=== PATIENT | female | born 1995 | race Caucasian/White ===

== ENCOUNTER 2020-02-03 18:08 | Emergency (ER) | payer BC ==
[~2020-02-03] VITALS: Ht 172.7 cm; Wt 81.6 kg
[2020-02-03 18:18] VITALS: Ht 172.7 cm; Wt 81.6 kg
[2020-02-03 19:08] LABS: BASOPHIL % 0.3 % (0-2); RED CELL DISTRIBUTION WIDTH 14.3 % (11.5-14.5)
[2020-02-03 19:09] LABS: PLATELET COUNT 403 x10^3mcL (130-400)
[2020-02-03 19:15] LABS: CALCIUM 8.9 mg/dL (8.5-10.1); CARBON DIOXIDE 17.8 mmol/L (21-32); CHLORIDE SERUM 105 mmol/L (98-107); CREATININE SERUM 0.5 mg/dL (0.6-1.0); GFR1 > 60 mL/min; GLUCOSE SERUM 168 mg/dL (74-106); POTASSIUM SERUM 3.2 mmol/L (3.5-5.1); SODIUM SERUM 139 mmol/L (136-145)
[2020-02-03 19:19] LABS: ALBUMIN 3.5 g/dL (3.4-5.0); ALKALINE PHOSPHATASE 79 U/L (46-116); ALT/SGPT 18 U/L (14-59); AST/SGOT 13 U/L (15-37); BILIRUBIN TOTAL 0.3 mg/dL (0.20-1.00); LIPASE 133 IU/L (73-393); TOTAL PROTEIN, SERUM 7.5 g/dL (6.4-8.2); TRIGLYCERIDES 96 mg/dL (<150)
[2020-02-03 19:21] LABS: CHOLESTEROL 97 mg/dL (<200); CHOLESTEROL/HDL RATIO 3.1; HDL CHOLESTEROL 31 mg/dL (40-60)
[2020-02-03 19:36] LABS: T3 TOTAL 0.97 ng/mL
[2020-02-03 19:45] LABS: FREE T4 1.14 ng/dL (0.76-1.46); FREE THYROXINE INDEX 2.7 ug/dL (1.4-4.5); T4(THYROXINE) 8.3 ug/dL (4.7-13.3)
[2020-02-03 21:43] LABS: AMPHETAMINE QUAL UR NONE DETECTED (See below)
[2020-02-03 23:46] LABS: CALCIUM 7.9 mg/dL (8.5-10.1); CHLORIDE SERUM 109 mmol/L (98-107); CREATININE SERUM 0.5 mg/dL (0.6-1.0); GFR1 > 60 mL/min; GLUCOSE SERUM 84 mg/dL (74-106); POTASSIUM SERUM 3.7 mmol/L (3.5-5.1); SODIUM SERUM 142 mmol/L (136-145)
[2020-02-04 00:49] VITALS: BP 132/88
== END 2020-02-04 00:40 ==
LOC: ED 18:08
PROVIDERS: Specialist
DX: K52.9 Noninfective gastroenteritis and colitis, unspecified (principal); E86.0 Dehydration; F32.9 Major depressive disorder, single episode, unspecified; F10.10 Alcohol abuse, uncomplicated
CPT/HCPCS: 83880; 84439; J1956; J3475; J3490; J7030; Q0092